=== PATIENT | female | born 2000 | race Caucasian/White ===

== ENCOUNTER 2024-04-03 14:29 | Outpatient (REF) | payer OTHER, SELFPAY ==
[2024-04-09 19:29] LABS: C. trachomatis RNA TMA NOT DETECTED (NOT DETECTED); N. gonorrhoeae RNA TMA NOT DETECTED (NOT DETECTED)
[2024-04-09 20:03] LABS: Trichomonas (NAAT) NOT DETECTED (NOT DETECTED)
== END 2024-04-03 14:30 | disposition home or self-care (01) ==
LOC: HO.LNP 14:29
PROVIDERS: Visit Provider Family Medicine
DX: Z12.4 Encounter for screening for malignant neoplasm of cervix (principal)
CPT/HCPCS: 87491; 87591; 87661; 88142

== ENCOUNTER 2024-11-22 15:33 | Outpatient (REF) | payer OTHER, SELFPAY ==
--- OUTSIDE RECORDS SUMMARY | 2024-11-22 15:38 | XMS_ITS | Clinical Summary ---
Author Organization [employer] [facility] ity Address [address] [place] [address] Care Team Providers Care Admissions Consultant Name Role Phone Unavailable Primary Care Provider Unavailabl e Social History Tobacco Use Types Packs/Day Years Used Date Smoking Tobacco: Never Assessed Sex and Gender Information Value Date Recorded Sex Assigned at Not on file Gender Identity Not on file Sexual Orientation Not on file Plan of Treatment Health Maintenance Due Date Last Done Comments Gonorrhea/Chlamydia Screening 2002 HPV Vaccines (1 - 3-dose series) 2017 DTaP,Tdap,and Td Vaccines (1 - Tdap) 2021 Hepatitis B Vaccines (1 of 3 - 19+ 3-dose series) 2021 Depression Screening 09/15/2022 HIV Screening 09/15/2022 Hepatitis C Screening 09/15/2022 Social Influencers of Health Screening 09/15/2022 Cervical Cancer Screening: P ap Smear 2023 COVID-19 Vaccine ( - 2023-2 5 season) 2024 Influenza Vaccine (#1) 2024 HIB Vaccines Aged Out No longer eligi ble based on patient's age to complete this topic Hepatitis A Vaccines Aged Out No long er eligible based on patient's age to complete this topic IPV Vaccines Aged Out No longer eligi ble based on patient's age to complete this topic MMR Vaccines Aged Out No longer eligi ble based on patient's age to complete this topic Meningococcal ACWY Vaccine Aged Out N o longer eligible based on patient's age to complete this topic Pneumococcal Vaccine: Pediat rics (0 to 5 Years) and At-Risk Patients (6 to 64 Years) Aged Out No longer eligible b ased on patient's age to complete this topic RSV Immunization Patients Un finesse 20 months Aged Out No longer eligible b ased on patient's age to complete this topic Varicella Vaccines Aged Out No longer eligible based on patient's age to complete this topic
--- OUTSIDE RECORDS SUMMARY | 2024-11-22 15:38 | XMS_ITS | Encounter Summary ---
Author Organization [employer] Address [address] [place] [address] 7 [place] [address] Care Team Providers Care Vice President Investor Relations Name Role Phone Jay Velasquez MD Primary Care Prov ider Encounter Details Date Type Department Care Team ([facility] st Contact Info) Description 11/22/2024 3:15 PM EST Office Visit [facility] CHC MED & PEDS [address] [place], [place] [phone] Jay Velasquez MD [address] [place] [address] Irregular periods (Primary Dx) Social History Tobacco Use Types Packs/Day Years Used Date Smoking Tobacco: Never Smokeless Tobacco: Never Alcohol Use Standard Drinks/Week Comments Not Currently 0 (1 standard drink = 0.6 oz pur e alcohol) Depression Answer Date Recorded Patient Health Questionnaire-9 Score 0 02/27/2024 Patient Health Questionnaire-9 Score 0 02/27/2024 Last PHQ-9: Questionnaire Data Not on file 0 02/27/2024 Housing Stability Answer Date Recorded What is your housing situation today? I have sary alanis 02/27/[address] you li ve. Do you have problems with any of the following? None of the above 02/27/2024 Food Insecurity Answer Date Recorded Within the past 12 months, y ou worried that your food would run out before you got money to buy more: Never True 02/27/2024 Within the past 12 months,th e food you bought just didn't last and you didn't have enough money to get more: Never True Transportation Answer Date Recorded In the past 12 months, has l ack of transportation kept you from medical appts, meetings, work or from getting things needed for daily living? No 02/27/2024 Utilities Answer Date Recorded In the past 12 months, has t he electric, gas, oil or water company threatened to shut off services in your home? No 02/27/2024 Depression Answer Date Recorded Patient Health Questionnaire-2 Score 0 02/27/2024 Comments Unknown Sex and Gender Information Value Date Recorded Sex Assigned at Female 02/10/2024 11:25 AM EDT Legal Sex Female 11:21 AM EDT Gender Identity Female 02/27/2024 2:09 PM EDT Sexual Orientation Straight 02/27/2024 2: 09 PM EDT documented as of this encounter Last Filed Vital Signs Vital Sign Reading Time Taken Comments Blood Pressure 129/71 11/22/2024 3:18 PM EST Pulse 94 11/22/2024 3:18 PM EST Temperature 36.4 ??C (97.6 ??F) 11/22/2024 3:18 PM ES T Respiratory Rate 20 11/22/2024 3:18 PM EST Oxygen Saturation 98% 11/22/2024 3:18 PM EST Inhaled Oxygen Concentration - - Weight 84.4 kg (186 lb) 11/22/2024 3:18 PM EST Height 154.9 cm (5' 1 ) 11/22/2024 3:18 PM EST Body Mass Index 35.14 11/22/2024 3:18 PM EST documented in this encounter Plan of Treatment Scheduled Orders Name Type Priority Associated Diagnoses Orde r Schedule hCG, Total, Quantitative Lab Routine Irregular periods Expected: 11/22/2024 (Approximate), Expires: 11/22/2025 Prolactin, Dilution Study Lab Routine Irregular periods Expected: 11/22/2024 (Approximate), Expires: 11/22/2025 TSH W/Reflex to FT4 Lab Routine Irregular periods Expected: 11/22/2024 (Approximate), Expires: 11/22/2025 FSH And LH Lab Routine Irregular periods Expected: 11/22/2024 (Approximate), Expires: 11/22/2025 Estradiol Lab Routine Irregular periods Expected: 11/22/2024, Expires: 11/22/2025 documented as of this encounter Visit Diagnoses Diagnosis Irregular periods- Primary documented in this encounter Additional Health Concerns Assessment Noted Time PHQ-9 Depression Total Score: 0 02/27/20 1:43 PM EDT documented as of this encounter Care Teams Vice President Investor Relations Relationship Specialty Start Date End Date Jay Velasquez MD [address] [place] [phone] PCP - General Internal Medicine 02/27/24 documented as of this encounter
--- OUTSIDE RECORDS SUMMARY | 2024-11-22 15:38 | XMS_ITS | Encounter Summary ---
Author Organization [employer] Address [address] [facility] 7t [place] [address] Care Team Providers Care Travel Cota Name Role Phone Jay Velasquez MD Primary Care Prov ider Encounter Details Date Type Department Care Team ([facility] st Contact Info) Description 11/21/2024 Telephone [facility] CHC MED & PEDS [address] [place], [place] [phone] Jay Velasquez MD [address] [place] [address] Social History Tobacco Use Types Packs/Day Years [...] PM EDT documented as of this encounter Miscellaneous Notes * Telephone Encounter - Deidra Mckeon MA - 11/21/2024 1:47 PM EST Called pt to r/s tomorrow's appt 11/22/24 due to office closing early because of bad weather. Pt didn't answer, lvm to call office back. documented in this encounter Plan of Treatment Not on file documented as of this encounter Visit Diagnoses Not on filedocumented in this encounter Additional Health Concerns Assessment Noted Time PHQ-9 Depression Total Score: 0 02/27/20 24 1:43 PM EDT documented as of this encounter Care Teams Travel Cota Relationship Specialty Start Date End Date Jay Velasquez MD [address] [place] [phone] PCP - General Internal Medicine 02/27/24 documented as of this encounter
--- OUTSIDE RECORDS SUMMARY | 2024-11-22 15:38 | XMS_ITS | Encounter Summary ---
Author Organization [employer] Address [address] 7[address] [place] [address] Care Team Providers Care Paper Gluing Operator Name Role Phone Jay Velasquez MD Primary Care Prov ider Encounter Details Date Type Department Care Team (Latest Contact Info) Description 11/22/2024 Travel Social History Tobacco Use Types Packs/Day Years [...] PM EDT documented as of this encounter Plan of Treatment Not on file documented as of this encounter Visit Diagnoses Not on filedocumented in this encounter Additional Health Concerns Assessment Noted Time PHQ-9 Depression Total Score: 0 02/27/20 1:43 PM EDT documented as of this encounter Care Teams Paper Gluing Operator Relationship Specialty Start Date End Date Jay Velasquez MD [address] [place] [phone] PCP - General Internal Medicine 02/27/24 documented as of this encounter
--- OUTSIDE RECORDS SUMMARY | 2024-11-22 15:38 | XMS_ITS | Clinical Summary ---
Author Organization [employer] Address [address] [facility] 7t [place] [address] Care Team Providers Care Watch Inspector Final Movement Name Role Phone Jay Velasquez MD Primary Care Prov ider Allergies No known active allergies Medications No known medications Active Problems Problem Noted Date Diagnosed Date Encounter for counseling regarding contraception 04/03/2024 Cervical cancer screening 04/03/2024 Encounter to establish care 02/29/2024 Assessment & Plan (02/29/2024 11:11 PM EDT): Patient has not seen a provider in over 2 years. No hospitalization or ER visits reported. PMHx - PSH - All- Meds - Menarche 10yrs LMP 02/16/24 Go Sexually acitve with 1 men, not interested in contraception for now Needs pap smear, prefers a female provider Encounters Date Type Department Care Team Description 11/22/2024 3:15 PM EST Office Visit [facility] MED & PEDS [address] [place] [address] Jay Velasquez MD Irregular periods (Primary Dx) 11/22/2024 Travel 11/21/2024 Telephone [facility] [address] [place] [address] Jay Velasquez MD 10/15/2024 Telephone [facility] [address] [place] [address] Jay Velasquez MD from Last 3 Months Immunizations Name Administration Dates Next Due TD (adult), 2 Lf tetanus tox oid, preservative free, adsorbed 02/01/2022 Family History Medical History Relation Name Comments No Known Problems Father No Known Problems Mother Relation Name Status Comments Father Mother Social History Tobacco Use Types Packs/Day Years Used Date Smoking Tobacco: Never Smokeless Tobacco: Never Tobacco Cessation:Counseling Given: Not Answered Alcohol Use Standard Drinks/Week Comments Not Currently [...] Orientation Straight 02/27/2024 2: 09 PM EDT Last Filed Vital Signs Vital Sign Reading [...] Mass Index 35.14 11/22/2024 3:18 PM EST Plan of Treatment Health Maintenance Due Date Last Done Comments Chlamydia and Gonorrhea Screening 2002 HIV Screening 2002 Alcohol/Substance Use Screening 2014 Family Planning (PISQ) 2017 HPV Vaccines (1 - 3-dose series) 2017 Hepatitis C Screening 2020 Hepatitis B Vaccines (1 of 3 - 19+ 3-dose series) 2021 DTaP/Tdap/Td Vaccines (1 - Tdap) 02/02/2022 02/01/2022 COVID-19 Vaccine (2 - 2023-2 5 season) 2024 11/18/2022 Influenza Vaccine (#1) 2024 Depression Screening 02/26/2025 02/27/2024, 02/27/2024 SDOH Screening 02/26/2025 02/27/2024 Tobacco Screening 02/28/2025 02/29/2024 Pap Smear 04/03/2027 04/03/2024 Zoster Vaccines (1 of 2) 2052 RSV Patients and Patients Aged 60 years or older (1 - 1-dose 75+ series) 2077 HIB Vaccines Aged Out No longer eligi ble based on patient's age to complete this topic Hepatitis A Vaccines Aged Out No long er eligible based on patient's age to complete this topic IPV Vaccines Aged Out No longer eligi ble based on patient's age to complete this topic Meningococcal Vaccine Aged Out No olaf kanika eligible based on patient's age to complete this topic Pneumococcal Vaccine: Pediatrics (0 to 5 Years) and At-Risk Patients (6 to 49) Years) Aged Out No longer eligible b ased on patient's age to complete this topic RSV under 20 months Aged Out No longe r eligible based on patient's age to complete this topic Rotavirus Vaccines Aged Out No longer eligible based on patient's age to complete this topic Procedures Procedure Name Priority Date/Time Associated Diagnosis Comments PAP SMEAR Routine 04/03/2024 11:15 AM EDT from Last 3 Months or Most Recently Relevant to Health Maintenance Results * Pap Smear (04/03/2024 11:15 AM EDT) 04/03/2024 11:1 5 AM EDT 04/04/2024 6:00 AM EDT [facility] - 04/29/2024 5:11 PM EDT ----- ------- Name: Kirk Olmos ?Age/Sex: 23/F ? : 2000 Unit#: [id number] ?? Attend Dr: Kristan Villafuerte MD ?Re04/03/24 ?Status: DEP REF ? Location: HO.LNP ?Disch: ? ----- ------- SPEC : [id number] ?RECD: 04/04/24-599 ? STATUS: ??SOUT ? REQ NUM: [id number] ? JEWEL: 04/03/24-1115 ? SUBM DR: Kristan Villafuerte MD ? ENTERED: ??04/04/24-726 ?SP TYPE: Pap Smr ?OTHR : ? ORDERED: ??Pap Smear ? Interpretation ?? Satisfactory for evaluation. ?? Negative for intraepithelial lesion or malignancy. ?Clinical Information LMP: Unknown date Previous PAP test: Unknown date/findings ? Material Received ?? ThinPrep-Cervical ----- ------- Signed (signature on file) Caryl Turner 04/29/24 3091 ? ----- ------- ? END OF REPORT ? us Kristan Villafuerte MD LAB CYTOLOGY ORDERABLES Final Result [facility] [address] [place] [address] [phone] from Last 3 Months or Most Recently Relevant to Health Maintenance Care Teams Watch Inspector Final Movement Relationship Specialty Start Date End Date aJy Velasquez MD [address] [place] [phone] PCP - General Internal Medicine 02/27/24
[2024-11-22 20:59] LABS: HCG Quantitative < 2 mIU/mL; TSH reflex Free T4 0.72 uIU/mL (0.32-4.0)
[2024-11-27 08:53] LABS: Prolactin Undiluted 12.1 ng/mL
[2024-12-02 04:33] LABS: Estradiol Ultra Sensitive 146 pg/mL
== END 2024-11-22 15:34 | disposition home or self-care (01) ==
LOC: HO.CHCLDS 15:33
PROVIDERS: Visit Provider Internal Medicine
DX: N92.6 Irregular menstruation, unspecified (principal)
CPT/HCPCS: 36415; 82670; 84146; 84443; 84702

== ENCOUNTER 2025-08-16 14:24 | Outpatient (REF) | payer MEDICAID, SELFPAY ==
--- OUTSIDE RECORDS SUMMARY | 2025-08-16 15:04 | XMS_ITS | Encounter Summary ---
Author Organization [employer] Address [address] [address] Care Team Providers Care Sample Room Supervisor Name Role Phone Jay Velasquez MD Primary Care Prov ider Reason for Visit * Reason Onset Date Comments MMr shot 08/13/2025 Encounter Details Date Type Department Care Team ([facility] st Contact Info) Description 08/13/2025 Telephone [facility] MEDICINE [address] [place] [address] Jay Velasquez MD [address] [place] [address] MMr shot Social History Tobacco Use Types Packs/Day Years [...] as of this encounter Miscellaneous Notes * Addendum Note - Anurag Brothers RN - 08/15/2025 9:29 AM EDTAddended by: ANURAG BROTHERS on: 08/15/2025 09:29 AM Modules accepted: Orders * Telephone Encounter - Queta Pino RN - 08/14/2025 4:42 PM EDT TC to pt. 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 Author advised that pt needs to speak with employer to see if any additional testing needed such as hep B, varicella, Tspot, and to inform office so testing can be completed at once. Author assisted pt with re [facility] and [facility] was able to log in. Advised for pt to send written message of testing needed for pcp to order. Pt verbalized understanding and agreement with plan. * Telephone Encounter - Lea Moreno RN - 08/14/2025 9:48 AM EDT Called pt regarding request for MMR immunization, spoke to pt. Pt states needs an MMR immunization for school, and wants to schedule this. Asked pt if she had all her shots as a child, including the MMR, pt states had all her shots. Advised best plan from here is to have titres drawn to indicate what she is and is not immune to, especially the MMR. Will task to PCP for order to draw all titres, so proof can be given to her school of her immunity or lack of immunity. If the titres come back thatsimone is not immune to MMR we will schedule her for the immunization. Pt understands and agrees with plan. Advised can do as walk in as soon as the orders are done. Insurance is currently C3. * Telephone Encounter - Britney Parry - 08/14/2025 8:58 AM EDT TC from pt returning call PCP DR. Jaquez * Telephone Encounter - Queta Pino RN - 08/13/2025 9:52 AM EDT TC to pt. No answer. VM left to return call to office or respond via [employer] * Telephone Encounter - Britney Parry - 08/13/2025 8:47 AM EDT Tc from pt requesting MMR shot for work. PCP DR. Jaquez documented in this encounter Plan of Treatment Scheduled Orders Name Type Priority Associated Diagnoses Orde r Schedule Measles, Mumps, and Rubella (MMR) Antibodies (IgG) Panel, Immune Status Lab Routine Encounter to establish care Expected: 08/15/2025 (Approximate), Expires: 08/15/2026 documented as of this encounter Visit Diagnoses Diagnosis Encounter to establish care documented in this encounter Additional Health Concerns Assessment Noted Time PHQ-9 Depression Total Score: 0 02/27/20 24 1:43 PM EDT documented as of this encounter Care Teams Sample Room Supervisor Relationship Specialty Start Date End Date Jay Velasquez MD [address] [place] [phone] PCP - General Internal Medicine 02/27/24 documented as of this encounter
--- OUTSIDE RECORDS SUMMARY | 2025-08-16 15:04 | XMS_ITS | Clinical Summary ---
Author Organization [employer] Address [address] [facility] 7 [place] [address] Care Team Providers Care Systems Management Consultant Name Role Phone Jay Velasquez MD Primary [...] Encounters Date Type Department Care Team Description 08/13/2025 Telephone [facility] MEDICINE [address] [place] [address] Jay Velasquez MD MMr shot from Last 3 Months Immunizations Immunization Administration Dates Next Due TD (adult), 2 [...] 94 11/22/2024 3:18 PM EST Temperature 36.4 C (97.6 F) 11/22/2024 3:18 PM EST Respiratory Rate 20 11/22/2024 3:18 PM EST Oxygen Saturation 98% 11/22/2024 3:18 PM EST Inhaled Oxygen Concentration - - Weight 84.4 kg (186 lb) 11/22/2024 3:18 PM EST Height 154.9 cm (5' 1 ) 11/22/2024 3:18 PM EST Body Mass Index 35.14 11/22/2024 3:18 PM EST Plan of Treatment Health Maintenance Due Date Last Done Comments HIV Screening 2002 Disability Screening 2002 Alcohol/Substance Use Screening 2014 Family Planning (PISQ) 2017 HPV Vaccines (1 - 3-dose series) 2017 Meningococcal B Vaccine (1 o f 2 - Standard) 2018 Hepatitis C Screening 2020 Hepatitis B Vaccines (1 of 3 - 19+ 3-dose series) 2021 DTaP/Tdap/Td Vaccines (1 - Tdap) 02/02/2022 02/01/2022 Depression Screening 02/26/2025 02/27/2024, 02/27/2024 SDOH Screening 02/26/2025 02/27/2024 Tobacco Screening 02/28/2025 02/29/2024 Chlamydia and Gonorrhea Screening 04/03/2025 04/03/2024 COVID-19 Vaccine (2 - 2024-2 6 season) 2025 11/18/2022 Influenza Vaccine (#1) 2025 Pap Smear 04/03/2027 04/03/2024 Zoster Vaccines (1 [...] Years) and At-Risk Patients (6 to 49) Years Aged Out No longer eligible b ased on patient's age to complete this topic RSV under 20 months Aged Out No longe r eligible based on patient's age to complete this topic Rotavirus Vaccines Aged Out No longer eligible based on patient's age to complete this topic Procedures Procedure Name Priority Date/Time Associated Diagnosis Comments PAP SMEAR Routine 04/03/2024 11:15 AM EDT CHLAMYDIA/N. GONORRHOEAE AND T. VAGINALIS RNA, QUAL,TMA Routine 04/03/2024 11:15 AM EDT Cervical cancer screening from Last 3 Months or Most Recently Relevant to Health Maintenance Results * Pap with NG,CT,Trich (04/03/2024 11:15 AM EDT) Trichomonas (NAAT) NOT DETECTED NOT DETECTED [facility] Comment:The analytical perfo rmance characteristics of thisassay have been determined by [facility] [employer]. Themodifications have not been cleared or approved bythe FDA. This assay has been validated pursuant to theCLIA regulations and is used for clinical purposes.For additional information, please refer tohttp://education.Audioscribe/faq/Trichomonastma(This link is being provided for information/educational purposes only.)THIS TEST WAS PERFORMED AT:[email or web address] [address] [id number] MARTINEZ MD CTNG Ref Lab NOT DETECTED NOT DETECTED [facility] NG Ref Lab NOT DETECTED NOT DETECTED [facility] ThinPrep vial Cervix uteri structure / Unknown 04/03/2024 11:15 AM EDT 04/04/2024 6:00 AM EDT us Kristan Villafuerte MD LAB CYTOLOGY ORDERABLES Final Result [facility] [address] [place] [phone] * Pap Smear (04/03/2024 11:15 AM EDT) 04/03/2024 11:1 5 AM EDT 04/04/2024 6:00 AM EDT Narrative [facility] - 04/29/2024 5:11 PM EDT ----- ------- Name: Kirk Olmos Age/Sex: 23/F : 2000 Unit#: [id number] Attend Dr: Kristan Villafuerte MD Re04/03/24 Status: DEP [facility] Disch: ----- ------- SPEC : [id number] RECD: 04/04/24 STATUS: WINNIE PRECIADO NUM: [id number] JEWEL: 04/03/24-[address] [facility] [address]: Kristan Villafuerte MD ENTERED: 04/04/24 SP TYPE: Pap Smr OTHR DR: ORDERED: Pap Smear Interpretation Satisfactory for evaluation. Negative for intraepithelial lesion or malignancy. Clinical Information LMP: Unknown date Previous PAP test: Unknown date/findings Material Received ThinPrep-Cervical ----- ------- Signed (signature on file) Caryl Turner 04/29/24 1711 ----- ------- END OF REPORT us Kristan Villafuerte MD LAB CYTOLOGY ORDERABLES Final Result [facility] [address] [place], [place] [phone] from Last 3 Months or Most Recently Relevant to Health Maintenance Care Teams Systems Management Consultant Relationship Specialty Start Date End Date aJy Velasquez MD [address] [place] [id number] PCP - General Internal Medicine 02/27/24
--- OUTSIDE RECORDS SUMMARY | 2025-08-16 15:04 | XMS_ITS | Clinical Summary ---
Author Organization [employer] [facility] ity Address [address] [place] [address] Care Team Providers Care Sleep Lab Technician Name Role Phone Unavailable Primary Care Provider Unavailabl e Social History Tobacco Use Types Packs/Day Years Used Date Smoking Tobacco: Never Assessed Comments Unknown Sex and Gender Information Value Date Recorded Sex Assigned at Not on file Legal Sex Female 2:56 PM EST Gender Identity Not on file Sexual Orientation Not on file Plan of Treatment Health Maintenance Due Date Last Done Comments Gonorrhea/Chlamydia Screening 2002 HPV Vaccines (1 - 3-dose series) 2017 Meningococcal B Vaccine (1 o f 2 - Standard) 2018 DTaP,Tdap,and Td Vaccines (1 - Tdap) 2021 Hepatitis B Vaccines (1 of 3 - 19+ 3-dose series) 2021 HIV Screening 09/15/2022 Hepatitis C Screening 09/15/2022 Social Influencers of Health Screening 09/15/2022 Cervical Cancer Screening: P ap Smear 2023 Depression Screening 10/17/2024 COVID-19 Vaccine (1 - 2023-2 5 season) 2025 Influenza Vaccine (#1) 2025 RSV Immunization Adult Patie nts (1 - 1-dose 75+ series) 2077 HIB [...] 5 Years) and At-Risk Patients (6 to 49 Years) Aged Out No longer eligible b ased on patient's age to complete this topic RSV Immunization Patients Un finesse 20 months Aged Out No longer eligible b ased on patient's age to complete this topic Varicella Vaccines Aged Out No longer eligible based on patient's age to complete this topic
[2025-08-17 08:23] LABS: Rubeola IgG (Measles) 290.00 AU/mL
== END 2025-08-16 14:25 | disposition home or self-care (01) ==
LOC: HO.CHCLDS 14:24
PROVIDERS: Visit Provider Internal Medicine
DX: Z01.84 Encounter for antibody response examination (principal); Z11.59 Encounter for screening for other viral diseases; Z76.89 Persons encountering health services in other specified circumstances
CPT/HCPCS: 36415; 86735; 86762; 86765